=== PATIENT | female | born 1995 | race Caucasian/White ===

== ENCOUNTER 2023-08-15 20:05 | Emergency (ER) | payer OTHER ==
[~2023-08-15] VITALS: Ht 144.8 cm; Wt 65.0 kg
[2023-08-15 20:14] VITALS: BP 148/74; O2SAT 100
[2023-08-15 23:20] LABS: EOSINOPHILS % 4.2 % (0.0-5.0); HEMATOCRIT. 36.7 % (36.0-48.0); HEMOGLOBIN. 11.9 g/dL (12.0-16.0); MEAN CORPUSCULAR HEMOGLOBIN 28.1 pg (28.0-32.0); MEAN CORPUSCULAR HGB CONC 32.6 g/dL (31.0-37.0); MEAN CORPUSCULAR VOLUME 86.3 fL (81.0-99.0); MEAN PLATELET VOLUME 10.1 fl (7.4-10.4); MONOCYTES % 5.4 % (2.0-8.0); NEUTROPHILS % 64.4 % (40.0-76.0); PLATELET 302 x1000/uL (130-400); RED BLOOD CELL COUNT 4.25 mill/uL (4.2-5.4); RED CELL DISTRIBUTION WIDTH 16.1 % (11.6-14.6); WHITE BLOOD COUNT 11.2 x1000/uL (4.5-11.0)
[2023-08-15 23:31] LABS: CARBON DIOXIDE 26 mEq/L (21-32); CHLORIDE 108 mEq/L (98-107); CREATININE 0.6 mg/dL (0.6-1.0); GLUCOSE 96 mg/dL (70-105); POTASSIUM 3.6 mEq/L (3.5-5.1); SODIUM 143 mEq/L (136-145)
[2023-08-15 23:44] LABS: UREA NITROGEN BLOOD < 5 mg/dL (9-23)
[2023-08-16 01:16] VITALS: PULSE 75; RESP 16; TEMP 98.7
== END 2023-08-16 01:19 | disposition home or self-care (01) ==
LOC: ER 20:05
DX: R51.9 Headache, unspecified (principal); Z13.89 Encounter for screening for other disorder
CPT/HCPCS: 36415; 80048; 81025; 85025; 99283